=== PATIENT | female | born 1980 | race Caucasian/White ===

== ENCOUNTER → 2017-07-19 | Outpatient (CLI) | payer BC, OTHER ==
[~2017-07-19] MED LIST: ALAVERT10 MG PO; ALLERCLEAR10 MG PO; AMBIEN 10 MG TA10 MG PO; ASPIRIN EC81 M1 PO; FLEXERIL PO; FLUOXETINE HCL20 M1 PO; HYDROCODON-ACE1 EA11; IMITREX 50 MG T50 MG PO; NAPROSYN500 MG PO; NEURONTIN 400400 M1 PO; NORCO 5-325 TA1 EACH PO; PAIN RELIEVER325 MG PO; PREDNISONE 20 M20 M1 PO; PREDNISONE 20 M20 MG PO; PROZAC20 MG PO; TOPAMAX 100 MG100 MG PO; TRAMADOL 50 MG50 MG PO; XANAX 0.25 MG0.25 MG PO
== END ==
LOC: MRI 12:22
DX: G93.9 Disorder of brain, unspecified (principal)